=== PATIENT | female | born 1975 | race Caucasian/White ===

== ENCOUNTER 2021-06-13 22:59 | Emergency (ER) | payer OTHER, SELFPAY ==
[2021-06-13 23:17] VITALS: BP 150/100; PULSE 90; RESP 20; TEMP 36.6; O2SAT 99
--- NOTE | 2021-06-13 23:40 | ED.GENADULT ---
HPI - General Adult General Chief complaint: Unspecified Stated complaint: sore on tongue Time Seen by Provider: 06/13/21 23:02 Source: patient and RN notes reviewed Mode of arrival: ambulatory Limitations: no limitations History of Present Illness complaint: anterior right tongue painful ulcer x 2 days. no tongue swelling or fever Onset (ago): day(s) (2) Location: mouth Severity: moderate Severity scale (1-10): 3 Quality: dull and other (sore) Pain Consistency: constant Relieving factors: none Exacerbating factors: eating Associated symptoms: denies other symptoms Treatments prior to arrival: none Related Data Home Medications Medication Instructions Recorded Confirmed amlodipine 2.5 mg PO DAILY 06/13/21 06/13/21 clonazepam 1 mg PO DAILY 06/13/21 06/13/21 norethindrone (contraceptive) 0.35 mg PO DAILY 06/13/21 06/13/21 triamterene-hydrochlorothiazid 37.5 tablet PO DAILY 06/13/21 06/13/21 Allergies Allergy/AdvReac Type Severity Reaction Status Date / Time nitrofurantoin Allergy Mild Unknown Verified 06/13/21 23:16 Penicillins Allergy Mild Unknown Verified 06/13/21 23:16 ERYTHROMYCIN LACTOBIONATE Allergy Mild Unknown Uncoded 06/13/21 23:16 NITROFURANTOIN MACROCRYSTAL Allergy Mild Unknown Uncoded 06/13/21 23:16 Review of Systems Review of Systems: All systems reviewed & are unremarkable except as noted in HPI and below ENT: Reports other (tongue ulcer) [facility] Past Medical History Medical History Aphthous ulcer of tongue Exam Const: General: cooperative, no acute distress and uncomfortable (due to mouth soreness) Nutritional Appearance: thin Orientation/consciousness: patient oriented x3 Limitations: no limitations HENMT: Head: normal to inspection, normocephalic and atraumatic Ears: hearing grossly normal bilaterally, external ears normal, TM's normal bilaterally and EAC's normal General nose exam: Normal external nose present and Normal nares present Face and sinus: normal facial exam and sinuses nontender Mouth: Yes moist mucous membranes and Yes other (right anterior tongue ulcer 4cm x 3 cm shallow with no necrosis or bleeding) Throat: posterior oropharynx normal Eyes: General: appearance normal, both eyes and all related structures Visual Mcnamara: normal visual mcnamara by confrontation Neck: Neck: normal visual inspection, no lymphadenopathy, no meningeal signs and trachea midline Chest: Chest palpation & inspection: normal inspection of the chest Resp: Effort & Inspection: normal respiratory effort and able to speak in complete sentences Auscultation: clear to auscultation bilaterally Cardio: Jugular venous distension: no JVD Rate: regular rate Rhythm: regular rhythm Heart sounds: S1 normal heart sound present and S2 normal heart sound present Peripheral pulses: Peripheral pulses 2+ throughout GI: Inspection: normal to inspection GI Palp: No abdominal tenderness Auscultation: normal bowel sounds : General: Yes bladder normal to palpation Back/Spine/Pelvis: Back: no CVA tenderness Thoracic/Lumbar Spine: thoracic and lumbar spine normal to inspection and thoraco-lumbar ROM normal Skin: General skin exam: normal color and no rashes or lesions noted Neuro: General: oriented to person and patient oriented x3 Cranial nerves: Yes CN's II-XII intact bilaterally, Yes Facial sensation intact/muscles of mastication intact, Yes Intact sense of smell present and Yes Equal, round and reactive pupils present Cognition (Neuro): normal cognition Speech: normal speech Gait exam (Neuro): Normal gait present Motor exam (neuro): 5/5 motor strength present throughout Sensory Exam: normal sensation Extrem: General: normal to inspection, full ROM and capillary refill normal Psych: Appearance: grossly normal Affect: Anxious affect present Attitude: cooperative Thought process: Normal thought process present Thought content: Yes Normal thought conten
[2021-06-13] MEDS: KETOROLAC (*BKC) 60 MG/2 ML VIAL IM (23:54)
[2021-06-13] MEDS: cefTRIAXone 1 GM VIAL IM (23:54)
== END 2021-06-14 00:13 | disposition home or self-care (01) ==
PROVIDERS: Emergency Provider Emergency Medicine; PCP Family Medicine
DX: K12.0 Recurrent oral aphthae (principal)
CPT/HCPCS: 96372; 99284; J0696; J1885

== ENCOUNTER 2023-08-07 22:40 | Emergency (ER) | payer OTHER, SELFPAY ==
[2023-08-07 22:44] VITALS: BP 128/96; PULSE 118; RESP 19; TEMP 36.6; O2SAT 98
--- NOTE | 2023-08-07 23:24 | PC.NURSE ---
ON 08/07/2023 AT 2324 PT SEEN BEING ESCORTED OUT OF ED BY ISP IN [place]. OTHER ISP OFFICER HERE AND STATES THAT THIS PT DID NOT WANT TO BE SEEN BY A PHYSICIAN.
== END 2023-08-07 23:24 | disposition left against medical advice (07) ==
LOC: ANHED 23:40
PROVIDERS: PCP Family Medicine
DX: Z02.89 Encounter for other administrative examinations (principal)
CPT/HCPCS: 99199

== ENCOUNTER 2024-10-21 20:09 | Emergency (ER) | payer OTHER, SELFPAY ==
--- OUTSIDE RECORDS SUMMARY | 2024-10-21 20:11 | XMS_ITS | Clinical Summary ---
Author Organization [facility] Address [address] [place] [address] Care Team Providers Care Concaver Name Role Phone Jez Muro MD Primary Care Provider [phone] Allergies Active Allergy Reactions Criticality Noted Date Comments Codeine Hives Reaction: Hives, Nitrofurantoin Penicillins Hives Reaction: Hives, Medications sulfamethoxazol e-trimethoprim (BACTRIM,SEPTRA ) 400-80 mg per tablet take 2 tablet by oral route every 12 hours 0 0 7 Active methadone (DOLOPHINE) 10 mg tablet take 1 tablet by oral route every 8 hours 0 0 7 Active lubiprostone (AMITIZA) 24 mcg capsule take 1 capsule by oral route 2 times every day with food and water 60 [address] (CYMBALTA) 60 mg capsule take 1 capsule by oral route every day 0 0 7 Active levonorgestrel (MIRENA) IUD 1 each by intrauterine route once. Active Active Problems No known active problems Surgical History Surgery Date Site/Laterality Comments ARM SURGERY LEG SURGERY Medical History Medical History Date Comments Drug abuse Opioid abuse, in remission Social History Tobacco Use Types Packs/Day Years Used Date Smoking Tobacco: Smoker, Current Status Unknown Smokeless Tobacco: Never Personal Safety Answer Date Recorded Have you ever been in or are you currently in a harmful physical or emotional relationship or is someone making you feel afraid or unsafe? Denies 02/23/2023 Comments No Sex and Gender Information Value Date Recorded Sex Assigned at Not on file Legal Sex Female 7:24 PM BACCARAT MANAGER Gender Identity Not on file Sexual Orientation Not on file Obstetrics History Last Filed Vital Signs Vital Sign Reading Time Taken Comments Blood Pressure 126/81 02/24/2023 12:30 AM BACCARAT MANAGER Pulse 81 02/24/2023 12:30 AM BACCARAT MANAGER Temperature 36.7 C (98 F) 02/23/2023 10:10 PM BACCARAT MANAGER Respiratory Rate 16 02/24/2023 12:30 AM BACCARAT MANAGER Oxygen Saturation 95% 02/24/2023 12:30 AM BACCARAT MANAGER Inhaled Oxygen Concentration - - Weight 72.6 kg (160 lb) 02/23/2023 10:10 PM BACCARAT MANAGER Height 167.6 cm (5' 6) 05/20/2017 10:18 AM CDT Body Mass Index 25.82 05/20/2017 10:18 AM CDT Plan of Treatment Health Maintenance Due Date Last Done Comments Breast Cancer Screening-Mammogram 1974 Cervical Cancer Screening 1974 Colon Cancer Screening-Colonoscopy 1974 Depression Screening 1974 Hepatitis C Screening 1974 Hepatitis B Screening 1992 Regular Well Visit/Exam 18-64 1992 Pneumococcal vaccine <65 (2 of 2 - PCV) 03/16/2010 0 03/16/2009 DTaP/Tdap/Td Vaccine (2 - Td or Tdap) 03/16/201902/2009, 10/29/2003 Zoster Vaccine (1 of 2) 2024 Influenza Vaccine (#1) 2024 11/21/2019, 1997 Insurance [facility] Care Teams Concaver Relationship Specialty Start Date End Date Jez Muro MD [address] [place] [address] [place] [address] PCP - General 06/24/16
--- OUTSIDE RECORDS SUMMARY | 2024-10-21 20:11 | XMS_ITS | Encounter Summary ---
Author Organization [facility] Address [address] [place] [address] Care Team Providers Care Museum Guide Name Role Phone Jez Muro MD Primary Care Provider Dwight Garza MD Unavailable [phone] Encounter Details Date Type Department Care Team (Late st Contact Info) Description 07/21/2018 Abstract SFL CONVERSION [address] [place] [address] , Generic Conversion, Social History Tobacco Use Types Packs/Day Years Used Date Smoking Tobacco: Never Assessed Comments Unknown Sex and Gender Information Value Date Recorded Sex Assigned at Not on file Legal Sex Female 9:05 PM CDT Gender Identity Not on file Sexual Orientation Not on file documented as of this encounter Plan of Treatment Not on file documented as of this encounter Visit Diagnoses Not on filedocumented in this encounter Additional Health Concerns Infection Onset Date Last Indicated Resolved Time 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 02/28/2018 COVID-19 Rule Out 05/11/2020 05/12/2020 05/12/2020 11:08 AM CDT COVID-19 Rule Out 06/01/2020 06/01/2020 06/01/2020 3:56 PM CDT ESBL - Extended Spectrum Beta-lactamase 06/03/2020 06/03/2020 COVID-19 Rule Out 06/17/2020 06/17/2020 06/17/2020 2:07 PM CDT COVID-19 Rule Out 06/17/2020 06/17/2020 06/19/2020 3:08 PM CDT documented as of this encounter Care Teams Museum Guide Relationship Specialty Start Date End Date Jez Muro MD [address] [place] [phone] PCP - General FAMILY PRACTICE 07/03/19 Dwight Garza MD [address] [place] [phone] Consulting Physician INTERVENTIONAL CARDIOLOGY 06/19/20 documented as of this encounter
--- OUTSIDE RECORDS SUMMARY | 2024-10-21 20:11 | XMS_ITS | Encounter Summary ---
Author Organization [facility] Address [address] [place] [address] Care Team Providers Care Gusset Stitcher Name Role Phone Jez Muro MD Primary Care Provider Dwight Garza MD Unavailable [phone]- [phone] Encounter Details Date Type Department Care Team (Late st Contact Info) Description 05/18/2020 Hospital Follow-up Call [facility] [address] [place] [address] Sabina Owen, RN Social History Tobacco Use Types Packs/Day Years Used Date Smoking Tobacco: Every Day Electronic Cigarettes Smokeless Tobacco: Never Alcohol Use Standard Drinks/Week Comments Not Currently 0 (1 standard drink = 0.6 oz pur e alcohol) Overall Financial Resource Strain (CARDIA) Answe r Date Recorded How hard is it for you to pa y for the very basics like food, housing, medical care, and heating? Not hard at all 05/11/2020 Hunger Vital Sign Answer Date Recorded Within the past 12 months, y ou worried that your food would run out before you got the money to buy more. Never true 05/12/19 21 Ran Out of Food in the Last Year Not on file 05/11/2020 Comments No Sex and Gender Information Value Date Recorded Sex Assigned at Not on file Legal Sex Female 9:05 PM CDT Gender Identity Not on file Sexual Orientation Not on file COVID-19 Exposure Response Date Recorded In the last month, have you been in contact with someone who was confirmed or suspected to have Coronavirus / COVID-19? No / Unsure 05/11/2020 9:27 AM CDT documented as of this encounter Functional Status * RETIRED Are you deaf or do you have serious difficulty hearing Answer Date of Assessment Author Status No 05/11/2020 3:48 PM CDT Activ e * RETIRED Are you blind or do you have serious difficulty seeing, even when wearing glasses? Answer Date of Assessment Author Status No 05/11/2020 3:48 PM CDT Activ e * Do you have serious difficulty walking or climbing stairs? Answer Date of Assessment Author Status No 05/11/2020 3:48 PM CDT Danae Fabian RN Active * Do you have difficulty dressing or bathing? Answer Date of Assessment Author Status No 05/11/2020 3:48 PM CDT Danae Fabian RN Active * Because of a physical, mental, or emotional condition, do you have difficulty doing errands alone such as visiting a doctor's office or shopping? Answer Date of Assessment Author Status No 05/11/2020 3:48 PM CDT Danae Fabian RN Active documented as of this encounter Mental Status * Because of a physical, mental, or emotional condition, do you have serious difficulty concentrating, remembering, or making decisions? Answer Entry Date Author Status No 05/11/2020 3:48 PM CDT Danae Fabian RN Active documented in this encounter Plan of Treatment Not on file documented as of this encounter Visit Diagnoses Not on filedocumented in this encounter Additional Health Concerns Infection Onset Date Last Indicated Resolved Time 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 02/28/2018 COVID-19 Rule Out 06/01/2020 06/01/2020 06/01/2020 3:56 PM CDT ESBL - Extended Spectrum Beta-lactamase 06/03/2020 06/03/2020 COVID-19 Rule Out 06/17/2020 06/17/2020 06/17/2020 2:07 PM CDT COVID-19 Rule Out 06/17/2020 06/17/2020 06/19/2020 3:08 PM CDT documented as of this encounter Care Teams Gusset Stitcher Relationship Specialty Start Date End Date Jez Muro MD [address] [place] [address] PCP - General FAMILY PRACTICE 07/03/19 Dwight Garza MD [address] [facility] [place] [phone] Consulting Physician INTERVENTIONAL CARDIOLOGY 06/19/20 documented as of this encounter
--- OUTSIDE RECORDS SUMMARY | 2024-10-21 20:11 | XMS_ITS | Clinical Summary ---
Author Organization [facility] Address [address] [place] [address] Care Team Providers Care Occupational Health And Safety Officer Name Role Phone Jez Muro MD Primary Care Provider Dwight Garza MD Unavailable [phone]- [phone] Allergies Active Allergy Reactions Criticality Noted Date Comments Codeine Nausea Only 07/04/2019 Doxepin Other (see comment) 07/08/2020 Feels like I'm crawling out of my skin Cephalexin Nausea Only 07/04/2019 Nitrofurantoin Nausea Only 07/04/2019 Nsaids Other (see comment) 07/08/2020 NO NSAIDS while on lithium Penicillins Rash Low 07/04/2019 Trazodone Other (see comment) 07/08/2020 Nightmares Medications clonazePAM 1 MG tabletIndications :Anxiety Take 1 tablet (1 mg total) by mouth 2 (two) times daily. Indications: Feeling Anxious 0 Active lisinopril 10 MG tabletIndications :blood pressure Take 1 tablet (10 mg total) by mouth 2 (two) times a day. Indications: blood pressure Active methadone 10 MG/ML Conc CONCENTRATED solutionIndicatio ns:Chronic Pain Take 16 mLs (160 mg total) by mouth daily. Indications: Chronic Pain Active clindamycin (CLEOCIN) 300 MG capsule 3 Active Active Problems Problem Noted Date Diagnosed Date Essential hypertension 07/15/2020 Abnormal ECG 07/15/2020 Calculus of gallbladder and bile duct with acute cholecystitis, with obstruction 05/13/2020 Renal calculi 05/13/2020 Choledocholithiasis 05/11/2020 Obstructive jaundice 05/11/2020 Family History Medical History Relation Comments Cancer Father stomach Colon Cancer Father Emphysema Mother Breast Cancer Sister Relation Status Comments Father Mother (Age 75) Sister (Age 52) Social History Tobacco Use Types Packs/Day Years Used Date Smoking Tobacco: Every Day Cigarettes 0.5 15 Electronic Cigarettes Smokeless Tobacco: Never Tobacco Cessation:Ready to Q uit: Not Asked; Counseling Given: Not Answered Alcohol Use Standard Drinks/Week Comments Not Currently 0 (1 standard drink = 0.6 oz pur e alcohol) 1 or 2 per month Overall Financial Resource Strain (CARDIA) Answe r [...] on file Sexual Orientation Not on file Occupation Industry Job Start Date Job End Date disabled Not on file Not on file Not on file Last Filed Vital Signs Vital Sign Reading Time Taken Comments Blood Pressure 150/109 05/30/2023 6:15 PM CDT Pulse 101 05/30/2023 5:38 PM CDT Temperature 37.1 C (98.8 F) 05/30/2023 5:38 PM CDT Respiratory Rate 16 05/30/2023 5:38 PM CDT Oxygen Saturation 99% 05/30/2023 6:30 PM CDT Inhaled Oxygen Concentration - - Weight 81.6 kg (180 lb) 05/30/2023 5:38 PM CDT Height 165.1 cm (5' 5) 05/30/2023 5:38 PM CDT Body Mass Index 29.95 05/30/2023 5:38 PM CDT Plan of Treatment Health Maintenance Due Date Last Done Comments Cervical Cancer Screening Pa p Smear (Age 30 to 64) Every 3 Years 1974 Colorectal Cancer Screening Colonoscopy (10 Years) 1974 Annual Physical 1977 DTaP, Tdap and Td Vaccines ( 1 - Tdap) 1993 Hepatitis B Vaccines (1 of 3 - 19+ 3-dose series) 1993 Pneumococcal Vaccine: 50+ Ye ars (1 of 2 - PCV) 1993 Cervical Cancer Screening Pa p with HPV Testing (Age 30 to 64) Every 5 Years 2004 Cervical Cancer Screening wi th HPV 2004 Mammogram Screening 2014 COVID-19 Vaccine ( - 2023-2 5 season) 2023 PHQ-2 (Physician Circle) 02/14/2024 Zoster Vaccines (1 of 2) 2024 Hepatitis C Completed 04/20/2012 Colorectal Cancer Screening FIT/FOBT (1 Year) Discontinued 05/11/2020 Meningococcal B Vaccine Aged Out No l onger eligible based on patient's age to complete this topic Meningococcal Vaccine Aged Out No milka donna eligible based on patient's age to complete this topic RSV Immunizations Under 20 Months Aged Out No longer eligible based on patient's age to complete this topic Medical Devices Implanted Type Area Franchise Consultant Device Identifier Shelf Expiration Date Model / Serial / Lot Stent Cook Ureteral Filaform 6 Fr X 24cm - [id number] Implanted:Qty: 1 on 05/13/2020 by Humaira Liu MD at [facility] Stent Left: Ureter [email or web address] 02/19/2023 [id number] / / [id number] Stent Cook Ureteral Filaform 6 Fr X 24cm - [id number] Implanted:Qty: 1 on 06/17/2020 by Humaira Liu MD at [facility] Stent Left: Ureter [email or web address] 03/17/2023 [id number] / / Procedures Procedure Name Priority Date/Time Associated Diagnosis Comments OCCULT BLOOD, FECES STAT 05/11/2020 9 :38 AM CDT from Last 3 Months or Most Recently Relevant to Health Maintenance Results * OCCULT BLOOD, FECES (05/11/2020 9:38 AM CDT) OCCULT BLOOD FECAL NEGATIVE NEGATIVE 05/11/2020 9:53 AM CDT [facility] STOOL SPECIMEN / Unknown 05/11/2020 9:38 AM CDT Josh Hoyos MD BODY FLUIDS AND STOOLS [place] Final Result [facility] [address] [place] [address], from Last 3 Months or Most Recently Relevant to Health Maintenance Additional Health Concerns Infection Onset Date Last Indicated 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 02/28/2018 ESBL - Extended Spectrum Beta-lactamase 06/04/19 21 06/03/2020 Insurance [employer] Advance Directives * Full Code (Latest Code Status on File) Date Activated Date Inactivated Comments 05/11/2020 2:29 PM 05/15/2020 7:47 PM Care Teams Occupational Health And Safety Officer Relationship Specialty Start Date End Date Jez Muro MD [address] [place] [phone] PCP - General FAMILY PRACTICE 07/03/19 Dwight Garza MD [address] [place] [phone] Consulting Physician INTERVENTIONAL CARDIOLOGY 06/19/20
[2024-10-21 20:13] VITALS: BP 135/89; PULSE 110; RESP 16; TEMP 38.3; O2SAT 96
--- NOTE | 2024-10-21 20:27 | ED.OVERDOSE ---
HPI - Overdose General Chief Complaint: Medical Clearance Stated Complaint: overdose Time Seen by Provider: 10/21/24 20:26 History of Present Illness HPI Narrative: Left without seen by provider Related Data Home Medications ?Medication ?Instructions ?Recorded ?Confirmed ?Last Taken ?Type amlodipine 2.5 mg tablet 2.5 mg PO DAILY 06/13/21 06/13/21 Unknown History clonazepam 1 mg tablet 1 mg PO DAILY 06/13/21 06/13/21 Unknown History norethindrone (contraceptive) 0.35 0.35 mg PO DAILY 06/13/21 06/13/21 Unknown History mg tablet triamterene 37.5 37.5 tablet PO DAILY 06/13/21 06/13/21 Unknown History mg-hydrochlorothiazide 25 mg tablet Allergies Allergy/AdvReac Type Severity Reaction Status Date / Time nitrofurantoin Allergy Mild Unknown Verified 10/21/24 20:23 Penicillins Allergy Mild Unknown Verified 10/21/24 20:23 codeine Allergy Hives Verified 10/21/24 20:23 ERYTHROMYCIN LACTOBIONATE Allergy Mild Unknown Uncoded 06/13/21 23:16 NITROFURANTOIN MACROCRYSTAL Allergy Mild Unknown Uncoded 06/13/21 23:16 [facility] Past Medical History Medical History Aphthous ulcer of tongue Course Vital Signs Vital signs: Vital Signs Temperature 38.3 C H 10/21/24 20:13 Pulse Rate 110 H 10/21/24 20:13 Respiratory Rate 16 10/21/24 20:13 Blood Pressure 135/89 10/21/24 20:13 Pulse Oximetry 96 10/21/24 20:13 Oxygen Delivery Room Air 10/21/24 20:13 Temperature 38.3 C H 10/21/24 20:13 Pulse Rate 110 H 10/21/24 20:13 Respiratory Rate 16 10/21/24 20:13 Blood Pressure 135/89 10/21/24 20:13 Pulse Oximetry 96 10/21/24 20:13 Oxygen Delivery Room Air 10/21/24 20:13 Discharge Plan Discharge Clinical Impression: Opioid use disorder Patient Disposition: Left Without Being Seen Patient Language: Lao Prescriptions: No Action clonazepam 1 mg tablet 1 mg PO DAILY amlodipine 2.5 mg tablet 2.5 mg PO DAILY triamterene-hydrochlorothiazid 37.5-25 mg tablet 37.5 tablet PO DAILY norethindrone (contraceptive) 0.35 mg tablet 0.35 mg PO DAILY cephalexin 500 mg tablet 500 mg PO Q6H Qty: 40 0RF ibuprofen 800 mg tablet 800 mg PO TID Qty: 20 0RF omeprazole magnesium [Prilosec OTC] 20 mg tablet,delayed release (DR/EC) 20 mg PO BID Qty: 20 0RF tramadol 50 mg tablet 50 mg PO BID PRN (Reason: pain) Qty: 6 0RF Follow-up/Referrals: Jez Muro M.D. [Primary Care Provider, Family Practice] Time of Disposition: 21:06
--- NOTE | 2024-10-21 20:30 | PC.NURSE ---
Pt stable. Vitals within normal range. A&O x 4.
[2024-10-21 20:31] VITALS: BP 127/71; PULSE 100; RESP 18; O2SAT 96
--- NOTE | 2024-10-21 20:58 | PC.NURSE ---
Pt aggravated because she immediately demanded Ativan upon arrival. I explained to her multiple times that the doctor was taking care of other pts, that he would be in as soon as he could and that I could not give her any medications until after she was seen. Registration went in to register pt. She told them that she needed to use the bathroom. I went down immediately to help her to the bathroom. She said that she was going to use the bathroom and just leave. She did not want to wait any longer. I told her that the doctor would be seeing her next and that he would in a couple of minutes. She said that she was not waiting, she would just take her IV out herself. I told her No, that I would remove her IV. I removed her IV and pt left before doctor could get to the room to see her. Pt was A&O x 4, steady on her feet on exit from the ED. She said, Thanks. I'm fine. I asked her if she knew where she was going and she said that she did and didn't need anything. She would be fine.
== END 2024-10-21 20:45 | disposition left against medical advice (07) ==
PROVIDERS: Emergency Provider Emergency Medicine; PCP Family Medicine
DX: F11.129 Opioid abuse with intoxication, unspecified (principal)
CPT/HCPCS: 99199